=== PATIENT | female | born 1940 | race Caucasian/White ===

== ENCOUNTER → 2018-11-07 | Outpatient (CLI) | payer MEDICARE, BC, OTHER ==
[~2018-11-07] MED LIST: LEVO125T4 PO; PRAV40TA2 PO
--- NOTE | 2018-11-07 16:21 | REP ---
Right lower extremity Duplex Doppler venous ultrasound: Real time compression and duplex Doppler interrogation of the right lower extremity deep venous system is performed. The right common femoral, superficial femoral and popliteal veins are fully compressible with transducer pressure and demonstrate normal spontaneous and phasic flow, without evidence of deep venous thrombosis. Impression: No evidence of deep venous thrombosis of the right lower extremity femoral popliteal venous system. Incidental note is made of a popliteal cyst medially measuring 4.7 x 2.5 x 3.4 cm. Electronically Signed by Adriano Ramos MD 11/07/2018 04:12 P
== END ==
LOC: M RAD 15:18
PROVIDERS: ATTEND Orthopaedic Surgery
DX: M17.11 Unilateral primary osteoarthritis, right knee (principal); M79.604 Pain in right leg

== ENCOUNTER 2018-12-29 07:02 | Inpatient (IN) | payer MEDICARE, BC, OTHER ==
[~2018-12-29] VITALS: Ht 160 cm; Wt 67.1 kg
[2018-12-29] VITALS (8 sets, daily range): BP systolic 113–140; BP diastolic 63–86
[~2018-12-29 07:02] MED LIST changes: +ACETAMINOPHEN 500 MG TAB PO ONE; +LIDOCAINE 1% MDV 20ML VIAL SQ PRN; +LR 1,000 ML IV ONE; +MIDAZOLAM INJ 2 MG/2 ML VIAL (J2250) IV SCH; +ceFAZolin SOD 2 GM in IV 1 EA IV ONE; +fentaNYL 100 MCG/2 ML INJECTION (J3010) IV SCH
[2018-12-29 07:54] LABS: PROTHROMBIN TIME 12.9 SECONDS (11.8-14.0)
--- NOTE | 2018-12-29 08:00 | HPE ---
DATE OF ADMISSION: 12/29/2018 ATTENDING PHYSICIAN: Dr. Jonathan Elam CHIEF COMPLAINT: Right knee pain and stiffness. HISTORY: This is a pleasant 78-year-old female patient with progressively worsening right knee pain and stiffness who failed to improve with conservative management. She has been consented for elective right total knee arthroplasty for her continued symptoms. ALLERGIES: - REMICADE - HUMIRA - DOXYCYCLINE CURRENT MEDICATIONS: - levothyroxine - calcium - pravastatin - simvastatin PAST MEDICAL HISTORY: Hypothyroidism, hyperlipidemia, allergies, rheumatoid arthritis, abnormal liver function tests, allergic rhinitis, eczema, insomnia, irritable bowel syndrome, obesity, and history of ruptured Prescott cyst. PAST SURGICAL HISTORY: Colonoscopy, trigger finger release, abdominal hysterectomy, bilateral cataract extraction. FAMILY HISTORY: Mother of cardiac complications, bilateral pneumonia. Father pneumonia SOCIAL HISTORY: The patient lives at home. She is retired. She does not use alcohol or nicotine. REVIEW OF SYSTEMS: Denies fever, chills, chest pain, shortness of breath, nausea, vomiting, diarrhea. Reports continued pain with weightbearing activities in the right knee. Denies recent upper respiratory or urinary tract infection symptoms. PHYSICAL EXAMINATION: Vitals: Height 5 feet 3-1/4 inches, weight 148.4, temperature 97.3, blood pressure 130/70, respirations 15, pulse 64. She is a normocephalic, atraumatic, adult female patient in no apparent distress. Neck is supple and nontender with no lymphadenopathy or jugular venous distention (JVD). Abdomen is soft and nontender. S1 and S2 auscultated with no murmurs, rubs or gallops. Lungs: Clear to auscultation bilaterally with no wheezes, rales or rhonchi. The right knee reveals intact overlying skin. No rashes or open wounds. Distal neurovascular status is intact in the right lower extremity. It is well perfused. She has intact range of motion. ELECTROCARDIOGRAM (EKG): Shows sinus tachycardia with some PVCs, no change from prior study. CHEST X-RAY: With no acute cardiopulmonary processes. LABS: White count 6.9, red count 5.02, hemoglobin 14, hematocrit 43.3, platelets 146, sed rate 21, BUN 13, creatinine 0.7. MEDICAL OPTIMIZATION: Completed by Dr. Rebecca Berkowitz and reviewed today on chart. ASSESSMENT: Symptomatic right knee degenerative changes. PLAN: Consented for right knee total arthroplasty by Dr. Elam.
[2018-12-29] MEDS ORDERED: MIDAZOLAM INJ 2 MG/2 ML VIAL (J2250) As Ordered ONE ×2 (08:50→10:49)
[2018-12-29] MEDS ORDERED: fentaNYL 100 MCG/2 ML INJECTION (J3010) As Ordered ONE (08:50)
[2018-12-29] MEDS: PRAVASTATIN 20 MG TAB PO SCH (09:00)
[2018-12-29] MEDS ORDERED: TRANEXAMIC ACID 100 MG/ML 10ML VIAL As Ordered ONE (09:43)
[2018-12-29] MEDS ORDERED: BUPIVACAINE LIPOSOME/PF 1.3% 20ML VIAL (13.3MG/ML)(EXPAREL)(C9290 PER1MG) As Ordered ONE (09:44)
[2018-12-29] MEDS ORDERED: ceFAZolin 1GM INJ (J0690 PER 500MG) As Ordered ONE (09:44)
[2018-12-29] MEDS ORDERED: BUPIVACAINE HCL 0.25% 10 ML VIAL As Ordered ONE (09:44)
[2018-12-29] MEDS ORDERED: EPINEPHrine INJ 1 MG/ML 1ML AMP As Ordered ONE (09:44)
[2018-12-29] MEDS ORDERED: PROPOFOL 200 MG/20 ML VIAL As Ordered ONE (10:49)
[2018-12-29] MEDS ORDERED: ePHEDrine SULFATE 25 MG/5 ML(5MG/ML) SYRINGE As Ordered ONE (10:49)
[2018-12-29] MEDS ORDERED: LIDOCAINE 2% INJ 100 MG/5 ML SDV (FOR ANES.) As Ordered ONE (10:49)
[2018-12-29] MEDS ORDERED: HYDROMORPHONE HCL 0.5 MG/ 0.5 ML SYRINGE (J1170 PER 1) IV PRN ×2 (12:15)
[2018-12-29] MEDS ORDERED: LR 1,000 ML IV SCH ×2 (12:30→13:31)
[2018-12-29] MEDS ORDERED: PERCOCET 5MG/325MG TAB PO PRN ×2 (12:30→22:15)
[2018-12-29] MEDS ORDERED: ONDANSETRON 4MG/2ML VIAL (J2405) IV PRN ×2 (12:30→22:15)
[2018-12-29] MEDS ORDERED: fentaNYL 100 MCG/2 ML INJECTION (J3010) IV PRN (12:30)
--- NOTE | 2018-12-29 12:51 | REP ---
Right knee: Two views. History: Postop imaging. Findings: A right knee arthroplasty is seen in place. Anterior skin kamran are seen. Periarticular an intra-articular soft tissue gas is visible. Arthroplasty components are well aligned. Impression: Right knee arthroplasty. Electronically Signed by Vicente Mae MD 12/29/2018 12:42 P
--- NOTE | 2018-12-29 12:51 | HPEPDOC ---
[facility] Medical History & Physical Date of Admission Dec 29, 2018 Date of Service: Dec 29, 2018 History and Physical CHIEF COMPLAINT: Status post right total knee arthroplasty HISTORY OF PRESENT ILLNESS: 78-year-old female with past medical history of hypothyroidism, rheumatoid arthritis and hyperlipidemia is being admitted after right total knee arthroplasty. Hospitalist team was consulted for medical management of the patient. Patient tolerated the procedure well, no complications, procedure done under spinal anesthesia. Patient seen in PACU, without any complaints, able to move all extremities, reports lack of sensation of the right lower extremity at this time. She denies any pain or nausea at this time. She reports history of rheumatoid arthritis, previous Remicade infusions, not on any medication for the past 2 years. Otherwise, she denies any short of breath, chest pain, vomiting, abdominal pain, diarrhea or headaches. 10 point review of systems negative except for above PAST MEDICAL HISTORY: 1. Rheumatoid arthritis. 2. Hypothyroidism. 3. , Hyperlipidemia. PAST SURGICAL HISTORY: 1. Trigger finger release. SOCIAL HISTORY: Never smoker. Denies alcohol use. Denies drug use FAMILY HISTORY: Both parents with [place] ALLERGIES: Please see below. HOME MEDICATIONS: Please see below. PHYSICAL EXAMINATION: VITAL SIGNS: Please see below. GENERAL: No distress HEENT: Normocephalic, atraumatic, moist mucous membranes NECK: Supple CARDIOVASCULAR EXAMINATION: S1, S2, no murmurs RESPIRATORY EXAMINATION: Clear to auscultation, no wheezing ABDOMINAL EXAMINATION: Soft, nontender, nondistended, positive bowel sounds EXTREMITIES: Right lower extremity range of motion limited due to anesthesia, able to move toes SKIN: No rash NEUROLOGICAL EXAMINATION: Alert and oriented 3, lack of sensation of the right lower extremity. PSYCHIATRIC EXAMINATION: Calm and cooperative LABORATORY DATA: See below. MICROBIOLOGY: Please see below. ASSESSMENT: 78-year-old female with past medical history of rheumatoid arthritis, hypothyroidism, hyperlipidemia, status post right total knee arthr oplasty. PLAN: 1. Right total knee arthroplasty. Management as per primary team, including pain control. Preop labs reviewed, no abnormalities noted. DVT prophylaxis with Xarelto. PT eval 2. Hypothyroidism. Continue levothyroxine 3. Hyperlipidemia. Continue pravastatin 4. Rheumatoid arthritis. Not on any medications at this time, stable, monitor. DVT prophylaxis: Xarelto GI prophylaxis: Not needed Vital Signs Vital Signs Date Time Temp Pulse Resp B/P (MAP) Pulse Ox O2 Delivery O2 Flow Rate FiO2 12/29/18 12:20 80 14 121/65 (83) 93 Room Air 12/29/18 12:05 98.0 12/29/18 10:14 2 Laboratory Data Labs 24H Laboratory Tests 2 12/29/18 07:28: Prothrombin Time 12.9, Prothromb Time International Ratio 1.00 Home Medications Scheduled Levothyroxine Sodium (Levothyroxine Sodium) 125 Mcg Tab, 125 MCG PO DAILY Pravastatin Sodium (Pravastatin Sodium) 40 Mg Tab, 40 MG PO DAILY Allergies Coded Allergies: No Known Allergies (Unverified , 02/07/09) A-FIB/CHADSVASC A-FIB History Current/History of A-Fib/PAF?: No NICOL MA MD Dec 29, 2018 12:51
[2018-12-29] MEDS ORDERED: ACETAMINOPHEN TAB 650MG DOSE (2X325MG) PO PRN (13:31)
[2018-12-29] MEDS ORDERED: FLEET ENEMA PR PRN (13:31)
[2018-12-29 15:01] LABS: INR 1.11
[2018-12-29] MEDS ORDERED: ROPIvacaine 0.5% 30 ML INJECTION (J2795 PER 1MG) ONE (15:16)
[2018-12-29] MEDS ORDERED: LIDOCAINE 1% MDV 20ML VIAL ONE (15:16)
[2018-12-29] MEDS ORDERED: dexameTHASONE 10 MG/1 ML VIAL PRES.FREE (J1100) ONE (15:16)
[2018-12-29] MEDS: ceFAZolin SOD 2 GM in IV 1 EA IV SCH ×2 (15:30→22:28)
[2018-12-30 02:00] VITALS: BP 113/68
[2018-12-30] MEDS: ceFAZolin SOD 2 GM in IV 1 EA IV SCH (04:29)
[2018-12-30 06:00] VITALS: BP 132/75
[2018-12-30] MEDS ORDERED: LEVOTHYROXINE 125MCG TABLET (0.125MG) PO SCH (06:00)
[2018-12-30 06:22] LABS: MEAN CORPUSCULAR HEMOGLOBIN 28.1 pg (27.0-33.0); MEAN CORPUSCULAR HGB CONC 31.4 g/dl (32.0-36.5); MEAN CORPUSCULAR VOLUME 89.3 fl (80.0-96.0); PLATELET COUNT, AUTOMATED 131 10^3/uL (150-450); RED BLOOD COUNT 3.92 10^6/uL (4.00-5.40); WHITE BLOOD COUNT 11.1 10^3/uL (4.0-10.0)
[2018-12-30 06:45] LABS: BLOOD UREA NITROGEN 11 MG/DL (7-18); CALCIUM LEVEL 9.1 MG/DL (8.8-10.2); CARBON DIOXIDE LEVEL 26 MEQ/L (21-32); CHLORIDE LEVEL 110 MEQ/L (98-107); CREATININE FOR GFR 0.78 MG/DL (0.55-1.30); GLOMERULAR FILTRATION RATE > 60.0 (>39); GLUCOSE, FASTING 113 MG/DL (70-100); POTASSIUM SERUM 3.6 MEQ/L (3.5-5.1); SODIUM LEVEL 143 MEQ/L (136-145)
[2018-12-30] MEDS: PERCOCET 5MG/325MG TAB PO PRN ×2 (06:49→10:58)
[2018-12-30] MEDS ORDERED: XARE10TA PO (06:55)
[2018-12-30] MEDS ORDERED: PERC5TAB12 PO (06:55)
--- NOTE | 2018-12-30 07:54 | RO ---
DATE OF PROCEDURE: 12/29/2018 PREPROCEDURE DIAGNOSIS: Right knee varus tricompartment degenerative arthritis. POSTPROCEDURE DIAGNOSIS: Right knee varus tricompartment degenerative arthritis. PROCEDURE: Right total knee arthroplasty using a size 5 cruciate-retaining Attune femoral component and a size 4 tibial tray with a 6 mm rotating platform polyethylene insert and 32 mm polyethylene button. All the components were cemented. Prosthesis was made by [employer]. SURGEON: Dr. Sonam Elam PLASTER MACHINE OPERATOR: Mr. Michele Hernandez. ANESTHESIA: Spinal with right femoral nerve block. COMPLICATIONS: None. ESTIMATED BLOOD LOSS: 20 mL. SPECIMENS: Joint surface. DESCRIPTION OF PROCEDURE: Antibiotics given intravenous preoperatively then a right femoral nerve block and then a spinal anesthetic was induced. Tourniquet placed on the right upper thigh and not inflated. Right lower extremity was carefully prepped and draped in the usual sterile fashion and elevated and appropriately time-out. The tourniquet was inflated. A longitudinal incision was made for a medial parapatellar approach to the knee. Bovie cautery was used to coagulate the crossing vessels. Then the medial parapatellar arthrotomy performed. Subperiosteal dissection around the proximal and medial lateral tibial plateau was performed. The patella was everted and the knee flexed. Anterior cruciate ligament (ACL) was debrided. A drill placed down the center of the femoral canal followed by the intramedullary robin and the distal femoral cutting jig set at 9 mm resection level, 5 degree valgus for a right knee. Block was pinned into position. Distal femoral cut was then performed. AP sizing jig measures for a size 5. The 3 degrees external rotation dialed in, the pins placed, 4-in-1 block applied, anterior posterior chamfer cuts were performed. We the exposed the proximal tibia. Used the extramedullary alignment jig to estimate being parallel to the mechanical axis of the tibia referencing off the medial tibial condyle at 4 mm resection level. A secondary check with extramedullary robin confirmed we appeared to be parallel to the mechanical axis of the tibia. Proximal tibia osteotomy thus performed. It was noteworthy, she had significant sclerosis along the medial tibial plateau and there was a significant cyst in the medial tibial plateau that was curetted out with a curved curet. The laminar road engineer was then placed medially and we performed a completion lateral meniscectomy with debridement of posterolateral osteophytes. Then placed the laminar road engineer laterally and performed a completion medial meniscectomy with debridement of the posteromedial osteophytes. Then the sizing spacer blocks were placed and there was good symmetry between the flexion and extension. It was a charlene snug initially with a 6 and even a 5 along the medial side of the joint. Thus I think because of the sclerosis of the medial tibial plateau, there was some skiving of the saw blade. I went back, re-applied the tibial cutting jig and indeed shaved a good more of the medial tibial plateau as well as did more aggressive medial release posteromedially. Thus, at this point, the 6 mm spacer block then fit nicely and normally with good symmetry in terms of its tightness between the medial and lateral both in flexion and in extension. We then exposed the proximal tibia, sized for a #4 tibial tray, which was pinned into position, followed by the reamer and broach. Trial polyethylene was placed. Trial femoral component placed. We did perform a sulcus cut osteotomy prior to cutting the tibia. The knee was brought into extension, the patella everted and then patellar osteotomy performed, sized for a 32 button, lug holes drilled. The trial was placed and patellofemoral tracking was anatomic. At this point, I then drilled the lug holes for the femur. Removed all the trial components and placed Exparel in the subperiosteal tissues around the distal femur and the proximal tibia. Then Mr. Michele Hernandez mixed the cement on the back table as I prepared the bony surfaces for cementing with a copious amount of pulsatile lavage irrigant solution. Mr. Hernandez was also critical to the success of this difficult surgery by helping to manipulate the knee as needed. He helped apply appropriate soft tissue retraction. Helped to mixed the cement, close the wound, prepare the patient for surgery amongst many other tasks to allow me to perform the operating smoothly, efficiency, and safely. Once all the bone surfaces were thoroughly dried, I cemented the tibial tray, removed excess cement, placed the polyethylene. Cemented the femoral component, removed t he excess cement. Brought the knee into extension, everted the patella and then cemented the patellar button, held it with a clamp and removed excess cement and held the knee in extension as we waited for the cement to hardened. I then applied a copious amount of pulsatile lavage irrigant solution into the knee joint as we were awaiting this and then tranexamic acid. The we closed the apex of the arthrotomy with two #1 PDS sutures. The medial parapatellar area was closed with #1 PDS suture. Then the subdermal tissues were closed with interrupted #2-0 PDS sutures. Then the skin was closed with kamran covered by an Optifoam dry sterile bulky dressing. The tourniquet was released after we had closed the arthrotomy and the patient was then transferred to the recovery room in stable condition. There were no intraoperative complications.
[2018-12-30] MEDS ORDERED: POTASSIUM CHLORIDE 10 MEQ SR TABLET PO ONE (08:45)
[2018-12-30] MEDS ORDERED: MOM 30ML SUSPENSION UDC PO SCH (09:00)
[2018-12-30] MEDS ORDERED: MIRALAX *UNIT DOSE* 17GM PACKET PO SCH (09:00)
[2018-12-30] MEDS ORDERED: FLUBLOK(EGG FREE)(QUAD)INFLUENZA VACC 0.5ML SYRINGE (90682)18YRS&OLDER IM ONE (09:00)
[2018-12-30] MEDS: PRAVASTATIN 20 MG TAB PO SCH (09:19)
[2018-12-30 09:53] VITALS: BP 122/60
[2018-12-30] MEDS ORDERED: RIVAROXABAN 10 MG TAB (XARELTO) PO SCH (18:00)
--- NOTE | 2019-01-01 20:37 | DSES ---
DATE OF ADMISSION: 12/29/2018 DATE OF DISCHARGE: 12/30/2018 ADMISSION DIAGNOSIS: Right knee varus tricompartment degenerative arthritis. OTHER DIAGNOSIS: Hypothyroidism, hyperlipidemia, allergies, rheumatoid arthritis, abnormal liver function tests, allergic rhinitis, eczema, insomnia, irritable bowel syndrome, obesity, history of ruptured Prescott's cyst. DISCHARGE DIAGNOSIS: Right knee varus tricompartment degenerative arthritis. OPERATION PERFORMED: Right total knee arthroplasty. HISTORY: This is a 78-year-old female with progressively worsening right knee pain and stiffness. She has failed to improve with conservative management. She was admitted for elective knee replacement on her right side. HOSPITAL COURSE: The patient was admitted on the day of surgery and underwent a right total knee arthroplasty, which was uneventful. She did well in the postoperative period. Her hospitalization course was without complications. She was up with physical therapy (PT) per their protocol. Her pain was controlled on the day of discharge. She was doing well and weight bearing as tolerated on her right lower extremity and will use deep vein thrombosis (DVT) prophylaxis per protocol and thromboembolic compression stockings (TEDS) for 30 days postoperatively for DVT prophylaxis. She will resume her preoperative medications and diet. She was given instructions to include, but not limited to wound monitoring and activity limitations. She will use oral pain medications for pain control. She will followup in our office in 10 to 14 days for surgical followup. Please refer to the medical record for further details.
== END 2018-12-30 13:35 | disposition home or self-care (01) | DRG 470 ==
LOC: M OR 07:02 → M MS5PR 14:01
PROVIDERS: ADMIT Orthopaedic Surgery; ATTEND Orthopaedic Surgery
PROC: 0SRC0J9 Replacement of Right Knee Joint with Synthetic Substitute, Cemented, Open Approach (ICD-10-PCS; principal; 2018-12-29 09:00)
DX: M17.11 Unilateral primary osteoarthritis, right knee (principal); E03.9 Hypothyroidism, unspecified; E78.5 Hyperlipidemia, unspecified; M06.9 Rheumatoid arthritis, unspecified; R94.5 Abnormal results of liver function studies; J30.9 Allergic rhinitis, unspecified; L30.9 Dermatitis, unspecified; G47.00 Insomnia, unspecified; K58.9 Irritable bowel syndrome, unspecified; E66.9 Obesity, unspecified; Z68.26 Body mass index [BMI] 26.0-26.9, adult; Z90.49 Acquired absence of other specified parts of digestive tract; Z98.41 Cataract extraction status, right eye; Z98.42 Cataract extraction status, left eye; Z87.39 Personal history of other diseases of the musculoskeletal system and connective tissue; Z88.1 Allergy status to other antibiotic agents; Z88.8 Allergy status to other drugs, medicaments and biological substances; Z79.899 Other long term (current) drug therapy

== ENCOUNTER → 2021-01-19 | Outpatient (REF) ==
[~2021-01-19] MED LIST changes: -ACETAMINOPHEN 500 MG TAB PO ONE; -LIDOCAINE 1% MDV 20ML VIAL SQ PRN; -LR 1,000 ML IV ONE; -MIDAZOLAM INJ 2 MG/2 ML VIAL (J2250) IV SCH; +PERC5TAB12 PO; +XARE10TA PO; -ceFAZolin SOD 2 GM in IV 1 EA IV ONE; -fentaNYL 100 MCG/2 ML INJECTION (J3010) IV SCH
== END ==
LOC: M LABSMTC 09:18
PROVIDERS: ATTEND Pediatrics
DX: Z11.52 Encounter for screening for COVID-19 (principal)

== ENCOUNTER → 2021-08-31 | Outpatient (REF) | payer MEDICARE, OTHER ==
[2021-08-31 14:19] LABS: BASO # 0.1 10^3/uL (0.0-0.2); BASO % 0.6 % (0.0-1.0); EOS # 0.1 10^3/uL (0.0-0.5); EOS % 1.4 % (0.0-3.0); HEMATOCRIT 42.7 % (36.0-47.0); HEMOGLOBIN 13.6 g/dl (12.0-15.5); LYMPH # 1.7 10^3/uL (1.5-5.0); MEAN CORPUSCULAR HEMOGLOBIN 29.7 pg (27.0-33.0); MEAN CORPUSCULAR HGB CONC 31.9 g/dl (32.0-36.5); MEAN CORPUSCULAR VOLUME 93.2 fl (80.0-96.0); MONO # 0.6 10^3/uL (0.0-0.8); MONO % 7.8 % (2.0-8.0); NEUTROPHILS # 5.6 10^3/uL (1.5-8.5); RED BLOOD COUNT 4.58 10^6/uL (4.00-5.40); WHITE BLOOD COUNT 8.1 10^3/uL (4.0-10.0)
[2021-08-31 14:21] LABS: APPEARANCE, URINE HAZY (CLEAR); BACTERIA, URINE AUTO 1+ (NEGATIVE); BILIRUBIN, URINE AUTO NEGATIVE (NEGATIVE); BLOOD, URINE BLOOD NEGATIVE (NEGATIVE); COLOR, URINE YELLOW (YELLOW); GLUCOSE, URINE (UA) AUTO NEGATIVE (NEGATIVE); KETONE, URINE AUTO NEGATIVE (NEGATIVE); LEUKOCYTE ESTERASE, URINE AUTO 3+ (NEGATIVE); MUCUS, URINE SMALL (NEGATIVE); NITRITE, URINE AUTO NEGATIVE (NEGATIVE); PROTEIN, URINE AUTO NEGATIVE (NEGATIVE); RBC, URINE AUTO 3 /HPF (0-3); SPECIFIC GRAVITY URINE AUTO 1.015 (1.002-1.035); SQUAMOUS EPITHELIAL CELL UR AU 4 /HPF (0-6); UROBILINOGEN, URINE AUTO 0.2 mg/dL (0.0-2.0); WBC, URINE AUTO 6 /HPF (0-3)
[2021-08-31 14:46] LABS: ERYTHROCYTE SEDIMENTATION RATE 45 mm/hr (0-30)
[2021-08-31 14:51] LABS: TOTAL PROTEIN,RANDOM URINE 22.8 MG/DL (0.0-12.0)
[2021-08-31 15:09] LABS: ALBUMIN 4.4 GM/DL (3.2-5.2); ALT/SGPT 24 U/L (12-78); BILIRUBIN,TOTAL 0.5 MG/DL (0.2-1.0); BLOOD UREA NITROGEN 11 MG/DL (7-18); C REACTIVE PROTEIN QUANTITATIV 0.77 MG/DL (0.00-0.30); CALCIUM LEVEL 9.9 MG/DL (8.8-10.2); CARBON DIOXIDE LEVEL 25 MEQ/L (21-32); CHLORIDE LEVEL 108 MEQ/L (98-107); COMPLEMENT C3 179 MG/DL (90-180); COMPLEMENT C4 33 MG/DL (10-40); CREATININE FOR GFR 0.72 MG/DL (0.55-1.30); GLOMERULAR FILTRATION RATE > 60.0 (>32); GLUCOSE, FASTING 102 MG/DL (70-100); SODIUM LEVEL 141 MEQ/L (136-145); TOTAL PROTEIN 8.4 GM/DL (6.4-8.2)
[2021-08-31 15:45] LABS: HEPATITIS B SURFACE ANTIGEN NEGATIVE (NEGATIVE)
[2021-08-31 16:12] LABS: HEPATITIS C VIRUS ABY INDEX 0.2 INDEX (<0.8)
[2021-08-31 16:13] LABS: HEPATITIS B CORE ANTIBODY IGM NEGATIVE (NEGATIVE)
== END ==
LOC: M SFHCRHEU 08:53
PROVIDERS: ATTEND Internal Medicine Rheumatology
DX: M05.79 Rheumatoid arthritis with rheumatoid factor of multiple sites without organ or systems involvement (principal); R76.8 Other specified abnormal immunological findings in serum; M15.9 Polyosteoarthritis, unspecified